=== PATIENT | male | born 1985 | race African-American/Black ===

== ENCOUNTER 2020-03-19 07:01 | Emergency (ER) | payer BC, OTHER ==
[~2020-03-19] VITALS: Ht 187.9 cm; Wt 108.7 kg
[2020-03-19 07:09] VITALS: BP 128/85
[2020-03-19] MEDS ORDERED: LIDOCAINE 1% INJ 20 ML 20 ML VIAL ONE (07:16)
[2020-03-19] MEDS ORDERED: LIDOCAINE 1% INJ 20 ML 20 ML VIAL INJ ONE ×2 (07:30)
--- NOTE | 2020-03-19 07:42 | ED Upper Extremity ---
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 He reports the glass shattered and cut his left forearm. Nursing Sepsis Screen: No Definite Risk History of Present Illness Date Seen by Provider: Mar 19, 2020 Time Seen by Provider: 07:15 Initial Comments Prior to arrival patient left arm through a window cutting the ulnar aspect of his left forearm distally is less than tendon is approximately a 4 cm in length curvilinear with a flap retracted laceration down to the level of her based tendons but no sign of tendon damage Onset: just prior to arrival Severity: moderate Pain/Injury Location: left forearm Method of Injury: incised Modifying Factors: Worse With Movement Allergies and Home Medications Allergies Coded Allergies: No Known Drug Allergies (Unverified , 03/19/20) Patient Home Medication List Home Medication List Reviewed: Yes Review of Systems Constitutional: no symptoms reported Musculoskeletal: No joint pain, No joint swelling, No muscle pain, No muscle stiffness Psychiatric/Neurological: Denies Numbness, Denies Tingling Past Etwtpnh-Mupiuj-Liflke Hx Past Med/Social Hx: Reviewed Nursing Past Med/Soc Hx Patient Social History Alcohol Use: Denies Use Recreational Drug Use: No Smoking Status: Current Someday Smoker Type Used: Cigars 2nd Hand Smoke Exposure: No Recent Foreign Travel: No Contact w/Someone Who Travel: No Recent Infectious Disease Expo: No Recent Hopitalizations: No Physical Abuse: No Sexual Abuse: No Mistreated: No Fear: No Seasonal Allergies Seasonal Allergies: No Past Medical History Surgeries: No Respiratory: No Cardiac: No Neurological: No Genitourinary: No Gastrointestinal: No Musculoskeletal: No Endocrine: No HEENT: No Cancer: No Psychosocial: No Integumentary: No Blood Disorders: No Physical Exam Vital Signs Vital Signs - First Documented 03/19/20 07:09 Temp 36.3 Pulse 72 Resp 18 B/P (MAP) 128/85 (99) Pulse Ox 100 O2 Delivery Room Air Capillary Refill : Less Than 3 Seconds Height, Weight, BMI Height: '" Weight: lbs. oz. kg; 30.00 BMI Method: General Appearance: WD/WN, no apparent distress Elbow/Forearm: Left (laceration as noted in the history of present illness 4 cm curvilinear distal ulnar side left forearm flap retracted no evidence of tendinous involvement good range of motion) Neurologic/Tendon: normal sensation, normal motor functions Neurologic/Psychiatric: no motor/sensory deficits, alert, normal mood/affect, oriented x 3 Procedures/Interventions Wound Location: Upper Extremities Other Wound Location Distal forearm ulnar side curvilinear 4 cm Wound's Depth, Shape: flap Wound Explored: clean Irrigated w/ Saline (ccs): 50 Anesthesia: 1% Lidocaine Suture: Ethlion Suture Size: 4-0 Number of Sutures: 8 Progress Patient tolerated procedure well Progress/Results/Core Measures Results/Orders My Orders Orders - LAW DE LA CRUZ JR, MD Lidocaine 1% Inj 20 Ml (Xylocaine 1% Inj (03/19/20 07:16) Lidocaine 1% Inj 20 Ml (Xylocaine 1% Inj (03/19/20 07:30) Lidocaine 1% Inj 20 Ml (Xylocaine 1% Inj (03/19/20 07:30) Medications Given in ED Current Medications Medications Dose Ordered Sig/Michelle Route Start Time Stop Time Status Last Admin Dose Admin Lidocaine HCl 20 ml ONCE ONCE INJ 03/19/20 07:30 03/19/20 07:31 DC 03/19/20 07:33 20 ML Vital Signs/I&O 03/19/20 07:09 Temp 36.3 Pulse 72 Resp 18 B/P (MAP) 128/85 (99) Pulse Ox 100 O2 Delivery Room Air Blood Pressure Mean: 99 Departure Impression Primary Impression: Laceration of left forearm Qualified Codes: S51.812A - Laceration without foreign body of left forearm, initial encounter Disposition: 01 HOME, SELF-CARE Condition: Stable Departure-Patient Inst. Referrals: NO,LOCAL PHYSICIAN (PCP/Family) Primary Care Physician Patient Instructions: Laceration Repair With Stitches (DC) Add. Discharge Instructions: Sutures out 10 days All discharge instructions reviewed with patient and/or family. Voiced understanding. LAW DE LA CRUZ JR, MD Mar 19, 2020 07:41
[2020-03-19] MEDS ORDERED: TETANUS & DIPHTHERIA TOX,ADULT 0.5 ML (TENIVAC) IM ONE (07:45)
== END 2020-03-19 07:45 | disposition home or self-care (01) ==
LOC: ER FS 07:05
DX: S55.012A Laceration of ulnar artery at forearm level, left arm, initial encounter (principal); F17.290 Nicotine dependence, other tobacco product, uncomplicated; Z23 Encounter for immunization; W26.8XXA Contact with other sharp object(s), not elsewhere classified, initial encounter
CPT/HCPCS: 12002; 90714

== ENCOUNTER 2020-03-29 15:22 | Emergency (ER) | payer BC ==
[~2020-03-29] VITALS: Ht 188 cm; Wt 110.1 kg
--- NOTE | 2020-03-29 15:34 | ED Suture Removal/Wound Check ---
Suture/Wound Re-check Suture Removal/Wound Recheck : Suture Removal/Wound Recheck: Sutures removed by RN General Appearance: WD/WN, no apparent distress Skin Exam: normal color, warm/dry, other (healing laceration left forearm) Physical Exam Vital Signs Vital Signs - First Documented 03/29/20 15:48 Temp 36.7 Pulse 66 Resp 14 B/P (MAP) 121/73 Pulse Ox 96 O2 Delivery Room Air Capillary Refill : General Appearance: WD/WN, no apparent distress Skin: normal color, warm/dry, other (healing lac left forearm w good wound margin approximation and granulation) Departure Impression Primary Impression: Encounter for removal of sutures Disposition: HOME, SELF-CARE Condition: Stable Departure-Patient Inst. Decision time for Depature: 15:34 Referrals: NO,LOCAL PHYSICIAN (PCP) Primary Care Physician Patient Instructions: SUTURE REMOVAL-UNCOMPLICATED, SUTURE REMOVAL - UNCOMPLICATED CRISTINA GARCÍA DO Mar 29, 2020 15:34
[2020-03-29 15:48] VITALS: BP 121/73
== END 2020-03-29 15:48 | disposition home or self-care (01) ==
LOC: EDUNIT# 15:22 → ER FS 15:23
DX: Z48.02 Encounter for removal of sutures (principal)

== ENCOUNTER 2020-04-13 16:45 | Emergency (ER) | payer BC ==
[~2020-04-13] VITALS: Ht 187.9 cm; Wt 105.7 kg
[2020-04-13 16:55] VITALS: BP 153/98
[2020-04-13] MEDS ORDERED: HYDROcodone/APAP 5 MG/325 MG (LORTAB) TAB PO ONE (17:00)
--- NOTE | 2020-04-13 17:11 | ED Lower Extremity ---
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 He had immediate pain and felt a pop as he planted and his knee moved inward. Now significant swelling and pain, presents in a knee immobilizer type brace. Denies history of knee problems or injury. Denies any other pain or concern. Allergies and Home Medications Allergies Coded Allergies: No Known Drug Allergies (Unverified , 03/19/20) Home Medications Hydrocodone/Acetaminophen 1 Each Tablet, 1 EACH PO Q4H Prescribed by: CRISTINA GARCÍA on 04/13/201711 Ibuprofen 800 Mg Tablet, 800 MG PO Q8H PRN for PAIN Prescribed by: CRISTINA GARCÍA on 04/13/201711 Patient Home Medication List Home Medication List Reviewed: Yes Review of Systems Constitutional: no symptoms reported Respiratory: no symptoms reported Cardiovascular: no symptoms reported Gastrointestinal: no symptoms reported Musculoskeletal: No back pain; joint pain (R knee), joint swelling; No neck pain Skin: No change in color, No lesions, No rash Past Rrlsqph-Twyshh-Mfcokv Hx Past Med/Social Hx: Reviewed Nursing Past Med/Soc Hx Patient Social History Type Used: Cigars 2nd Hand Smoke Exposure: No Recent Foreign Travel: No Contact w/Someone Who Travel: No Recent Infectious Disease Expo: No Recent Hopitalizations: No Seasonal Allergies Seasonal Allergies: No Past Medical History Surgeries: No Respiratory: No Cardiac: No Neurological: No Genitourinary: No Gastrointestinal: No Musculoskeletal: No Endocrine: No HEENT: No Cancer: No Psychosocial: No Integumentary: No Blood Disorders: No Physical Exam Vital Signs Vital Signs - First Documented 04/13/20 16:55 Temp 35.9 Pulse 93 Resp 16 B/P (MAP) 153/98 (116) Pulse Ox 98 O2 Delivery Room Air Capillary Refill : Less Than 3 Seconds Height, Weight, BMI Height: '" Weight: lbs. oz. kg; 29.00 BMI Method:Actual General Appearance: WD/WN, no apparent distress Hips: bilateral hip non-tender, bilateral hip normal inspection, bilateral hip normal range of motion Legs: bilateral leg non-tender, bilateral leg normal inspection, bilateral leg normal range of motion Knees: right knee joint effusion, right knee pain, right knee soft tissue tenderness, right knee swelling Ankles: bilateral ankle non-tender, bilateral ankle normal inspection, bilateral ankle normal range of motion, bilateral ankle no evidence of injury Feet: bilateral foot non-tender, bilateral foot normal inspection, bilateral foot normal range of motion, bilateral foot no evidence of injury Neurologic/Psychiatric: no motor/sensory deficits, normal mood/affect Skin: normal color, warm/dry Moderate knee effusion w TTP MCL and ant joint line. Unable to actively extend or perform straight leg raise. No patellar tenderness and not grossly maligned. Procedures/Interventions Suture Size: 4-0 Progress/Results/Core Measures Results/Orders My Orders Orders - CRISTINA GARCÍA DO Knee 3 View Right (04/13/20 16:58) Hydrocodone/Apap 5/325 Tablet (Lortab 5 (04/13/20 17:00) Medications Given in ED Current Medications Medications Dose Ordered Sig/Michelle Route Start Time Stop Time Status Last Admin Dose Admin Acetaminophen/ Hydrocodone Bitart 1 tab ONCE ONCE PO 04/13/20 17:00 04/13/20 17:01 DC 04/13/20 17:18 1 TAB Vital Signs/I&O 04/13/20 16:55 Temp 35.9 Pulse 93 Resp 16 B/P (MAP) 153/98 (116) Pulse Ox 98 O2 Delivery Room Air Blood Pressure Mean: 116 Progress Progress Note : Progress Note Patient came to ER w a functional 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 Sent home w same (locked). Diagnostic Imaging Diagonstic Imaging: Xray Plain Films/CT/US/NM/MRI: knee Comments Date of Exam:04/13/20 KNEE 3 VIEW RIGHT EXAM: KNEE 3 VIEW RIGHT INDICATION: Right knee pain after playing football. COMPARISON: None. FINDINGS: No fracture identified. High-riding patella, compatible with patellar tendon rupture. Marked soft tissue swelling in the anterior knee. No radiopaque foreign bodies. IMPRESSION: High-riding patella and marked soft tissue swelling in the anterior knee, compatible with patellar tendon rupture. This could be better evaluated with MRI. Dictated on workstation # [id number] Dict: 04/13/20 1715 Trans: 04/13/20 1720 AS6 [id number] Interpreted by: HEATHER NEAL MD Electronically signed by: Departure Impression Primary Impression: Patellar tendon rupture Qualified Codes: S86.811A - Strain of other muscle(s) and tendon(s) at lower leg level, right leg, initial encounter Disposition: 01 HOME, SELF-CARE Condition: Stable Departure-Patient Inst. Decision time for Depature: 17:09 Referrals: NO,LOCAL PHYSICIAN (PCP) Primary Care Physician JENNYFER BARRIENTOS MD Patient Instructions: Quadriceps and Patellar Tendon Injuries Add. Discharge Instructions: Please call Dr Barrientos's office tomorrow morning to schedule a follow up appointment regarding your knee injury (PATELLA TENDON RUPTURE). Continue to wear your knee immobilizer for comfort and protection of the joint. Use crutches for walking and avoid bearing weight if not tolerable. Apply ICE 3 times daily for 20 minutes. All discharge instructions reviewed with patient and/or family. Voiced understanding. Scripts Ibuprofen (Ibuprofen) 800 Mg Tablet 800 MG PO Q8H PRN for PAIN, #30 TAB 0 Refills Prov: CRISTINA GARCÍA DO 04/13/20 Hydrocodone/Acetaminophen (Hydrocodone-Acetamin 5-325 mg) 1 Each Tablet 1 EACH PO Q4H for Abdominal Pain, #15 TAB Prov: CRISTINA GARCÍA DO 04/13/20 CRISTINA GARCÍA DO Apr 13, 2020 17:11
[2020-04-13] MEDS ORDERED: ACHD5005 PO (17:12)
[2020-04-13] MEDS ORDERED: IBUP-1780 PO (17:12)
--- NOTE | 2020-04-13 17:20 | Diagnostic Imaging Report ---
EXAM: KNEE 3 VIEW RIGHT INDICATION: Right knee pain after playing football. COMPARISON: None. FINDINGS: No fracture identified. High-riding patella, compatible with patellar tendon rupture. Marked soft tissue swelling in the anterior knee. No radiopaque foreign bodies. IMPRESSION: High-riding patella and marked soft tissue swelling in the anterior knee, compatible with patellar tendon rupture. This could be better evaluated with MRI. Dictated by: Dictated on workstation # [id number]
== END 2020-04-13 17:43 | disposition home or self-care (01) ==
LOC: EDUNIT# 16:45 → ER FS 16:46
DX: S76.111A Strain of right quadriceps muscle, fascia and tendon, initial encounter (principal); X50.1XXA Overexertion from prolonged static or awkward postures, initial encounter; Y93.61 Activity, american tackle football
CPT/HCPCS: 73562